=== PATIENT | female | born 1995 | race Hispanic/Latino ===

== ENCOUNTER 2017-10-24 20:22 | Emergency (ER) | payer SELFPAY ==
[2017-10-24 21:31] LABS: Urine Blood 2+ (NEG); Urine Glucose NEGATIVE (NEG); Urine Protein TRACE (NEG)
[2017-10-24 22:11] LABS: Urine Bacteria >50 /HPF (<20); Urine Culture Reflex Order NOT NEEDED
[2017-10-24 22:13] LABS: Bicarbonate 24 mEq/L (21-31); Glucose Level 94 mg/dL (65-120); Potassium 3.6 mEq/L (3.6-5.0); Sodium Level 134 mEq/L (135-145)
[2017-10-24 22:14] LABS: Absolute Lymphocytes (CBC) 1.4 K/uL (0.7-4.9); Absolute Monocytes 0.5 K/uL (0.1-1.3); Absolute Neutrophil 4.2 K/uL (1.8-8.0); Basophils % 0.6 % (0-1.3); Eosinophils % 6.6 % (0-4.4); Hematocrit 40.4 % (36.0-45.0); Lymphocytes % 21.3 % (15.3-44.8); MCH 30.8 pg (27.0-35.0); MPV 9.2 fL (7.6-11.3); Monocytes % 7.4 % (3.3-12.3); RBC Red Blood Cell Count 4.54 M/uL (3.86-4.86)
[2017-10-24] MEDS ORDERED: CEFTRIAXONE/SWI 1gm 1 GM/10 ML SYR ONE (22:33)
[2017-10-24 23:12] LABS: BUN Blood Urea Nitrogen 8 mg/dL (6-20)
--- NOTE | 2017-10-24 23:27 | ER ---
Nurse's Notes [facility] Name: Maria Antonia Montes De Oca Age: 22 yrs Sex: Female : 1995 Arrival Date: 10/24/2017 Time: 20:25 Bed 17 Private MD: Diagnosis: state;Urinary tract infection, site not specified;Asthma Presentation: 10/24 20:45 Presenting complaint: Patient states: Urinary frequency, pain with urination since lp1 Friday; Denies fever, N/V; Pain to RLQ of abdomen; About 12 weeks . Transition of care: patient was not received from another setting of care. Onset of symptoms was October 24, 2017. Initial Sepsis Screen: Does the patient meet any 2 criteria? No. Patient's initial sepsis screen is negative. Does the patient have a suspected source of infection? No. Patient's initial sepsis screen is negative. Care prior to arrival: None. 20:45 Method Of Arrival: Ambulatory lp1 20:45 Acuity: LETICIA 3 lp1 DIRECTOR WORK: 20:47 LMP 07/29/2017, Verified, EDC 05/05/2018, Gestational age from LMP: 12 weeks 4 lp1 days Historical: - Allergies: 20:46 No Known Allergies; lp1 - Home Meds: 20:46 None [Active]; lp1 - PMHx: 20:46 Asthma; lp1 - PSHx: 20:46 ; Hernia repair; lp1 - Immunization history:: Adult Immunizations up to date. - Social history:: Smoking status: Patient/guardian denies using tobacco. Screenin:47 Abuse screen: Denies threats or abuse. Denies injuries from another. Nutritional lp1 screening: No deficits noted. Tuberculosis screening: No symptoms or risk factors identified. Fall Risk None identified. Assessment: 21:34 General: Appears in no apparent distress. uncomfortable, Behavior is calm, cooperative, jd3 appropriate for age. Pain: Complains of pain in right upper quadrant and right lower quadrant Quality of pain is described as sharp. Neuro: Level of Consciousness is awake, alert, obeys commands, Oriented to person, place, time, situation. Cardiovascular: Heart tones S1 S2 present Capillary refill < 3 seconds Patient's skin is warm and dry. Respiratory: Airway is patent Respiratory effort is even, unlabored, Respiratory pattern is regular, symmetrical, Breath sounds with wheezes bilaterally. GI: Abdomen is round Bowel sounds present X 4 quads. Abd is soft X 4 quads Abdomen is tender to palpation in right upper quadrant and right lower quadrant Reports nausea. : Reports burning with urination. EENT: No signs and/or symptoms were reported regarding the EENT system. Derm: Skin is intact, Skin is dry, Skin is normal, Skin temperature is warm. Musculoskeletal: Circulation, motion, and sensation intact. Range of motion: intact in all extremities. 22:11 Reassessment: Patient appears in no apparent distress at this time. Patient and/or jd3 family updated on plan of care and expected duration. Pain level reassessed. Patient is alert, oriented x 3, equal unlabored respirations, skin warm/dry/pink. ultrasound at bedside. 23:26 Reassessment: Patient appears in no apparent distress at this time. Patient and/or jd3 family updated on plan of care and expected duration. Pain level reassessed. Patient is alert, oriented x 3, equal unlabored respirations, skin warm/dry/pink. 23:46 Reassessment: Patient appears in no apparent distress at this time. Patient and/or jd3 family updated on plan of care and expected duration. Pain level reassessed. Patient is alert, oriented x 3, equal unlabored respirations, skin warm/dry/pink. pt reported understanding of discharge instructions, even and steady gait upon discharge. Vital Signs: 20:47 BP 112 / 69; Pulse 88; Resp 18; Temp 98.9(O); Pulse Ox 98% on R/A; Weight 59.87 kg; lp1 Height 5 ft. 2 in. (157.48 cm); Pain 7/10; 22:28 BP 117 / 53; Pulse 77; Resp 16 S; Pulse Ox 100% on R/A; jd3 23:26 BP 113 / 61; Pulse 66; Resp 17 S; Pulse Ox 99% on R/A; jd3 20:47 Body Mass Index 24.14 (59.87 kg, 157.48 cm) lp1 ED Course: 20:25 Patient arrived in ED. am2 20:46 Triage completed. lp1 20:46 Arm band placed on left wrist. lp1 21:30 [facility]C [facility]. snw 21:30 Darci Huerta MD is Attending Physician. snw 21:34 Tim Dolan, RN is Primary Nurse. jd3 21:37 Patient has correct armband on for positive identification. Bed in low position. Call [facility] light in reach. Side rails up X 1. Adult w/ patient. 21:45 Inserted saline lock: 20 gauge in right antecubital area, using aseptic technique. jd3 Blood collected. 21:52 CBC with Diff Sent. jd3 21:52 Basic Metabolic Panel Sent. jd3 21:52 Abo/rh Typing Sent. jd3 21:52 Quantitative Hcg Sent. jd3 22:27 Ultrasound completed. Patient tolerated well. sg3 22:38 US Transvaginal Ob In Process Unspecified. EDMS 23:40 No provider procedures requiring assistance completed. IV discontinued, intact, jd3 bleeding controlled, No redness/swelling at site. Pressure dressing applied. Administered Medications: 22:39 Drug: Rocephin 1 grams Route: IV; Rate: calculated rate; Site: right antecubital; jd3 23:36 Follow up: Response: No adverse reaction; IV Status: Completed infusion jd3 23:36 Drug: Albuterol 2.5 mg Route: Inhalation; jd3 23:47 Follow up: Response: No adverse reaction jd3 Outcome: 23:27 Discharge ordered by . snw 23:40 Condition: stable jd3 23:40 Discharge instructions given to patient, family, Instructed on discharge instructions, follow up and referral plans. medication usage, Demonstrated understanding of instructions, follow-up care, Prescriptions given X 2. 23:46 Discharged to home ambulatory, with family. jd3 23:49 Patient left the ED. jd3 Addendum: 10/27/2017 07:46 Addendum: Culture Results: Positive urine culture. No further action required. Bacteria s s sensitive to prescribed antibiotic. Signatures: Dispatcher [employer] EDWY Rachel Dunn, TYPING ELEMENT MACHINE OPERATOR-C TYPING ELEMENT MACHINE OPERATOR-Csnw Veronika Mendoza RN RN ss Atiya Escobar RN RN lp1 Laura Rubalcava am2 Tim Dolan RN RN jd3 Kristina Galloway sg3
--- NOTE | 2017-10-24 23:27 | EDPHYS ---
Physician Documentation [facility] Name: Maria Antonia Montes De Oca Age: 22 yrs Sex: Female : 1995 Arrival Date: 10/24/2017 Time: 20:25 Bed 17 Private MD: ED Physician Darci Huerta HPI: 10/24 22:39 This 22 yrs old Female presents to ER via Ambulatory with complaints of Pain snw With Urination, Urinary Frequency. 22:39 Onset: The symptoms/episode began/occurred suddenly, 2 day(s) ago, and became snw persistent. Associated signs and symptoms: Pertinent positives: The patient does not have any pertinent positive signs or symptoms associated with pediatric illness. The patient has not experienced similar symptoms in the past. The patient has been recently seen by a physician: with different complaint(s), and apparently was diagnosed with - pt is moving and saw an disability insurance hearing officer in [place]. . 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 - Social history:: Smoking status: Patient/guardian denies using tobacco. ROS: 22:39 Constitutional: Negative for fever, chills, and weight loss, Eyes: Negative for injury, snw pain, redness, and discharge, ENT: Negative for injury, pain, and discharge, Neck: Negative for injury, pain, and swelling, Cardiovascular: Negative for chest pain, palpitations, and edema, Respiratory: Negative for shortness of breath, cough, wheezing, and pleuritic chest pain, Back: Negative for injury and pain, MS/Extremity: Negative for injury and deformity, Skin: Negative for injury, rash, and discoloration, Neuro: Negative for headache, weakness, numbness, tingling, and seizure. 22:39 Abdomen/GI: Positive for abdominal pain. 22:39 : Positive for urinary symptoms, urinary frequency, small amounts, burning with urination. Exam: 22:38 Constitutional: This is a well developed, well nourished patient who is awake, alert, snw and in no acute distress. Head/Face: Normocephalic, atraumatic. Eyes: Pupils equal round and reactive to light, extra-ocular motions intact. Lids and lashes normal. Conjunctiva and sclera are non-icteric and not injected. Cornea within normal limits. Periorbital areas with no swelling, redness, or edema. ENT: Nares patent. No nasal discharge, no septal abnormalities noted. Tympanic membranes are normal and external auditory canals are clear. Oropharynx with no redness, swelling, or masses, exudates, or evidence of obstruction, uvula midline. Mucous membranes moist. Neck: Trachea midline, no thyromegaly or masses palpated, and no cervical lymphadenopathy. Supple, full range of motion without nuchal rigidity, or vertebral point tenderness. No Meningismus. Chest/axilla: Normal chest wall appearance and motion. Nontender with no deformity. No lesions are appreciated. Cardiovascular: Regular rate and rhythm with a normal S1 and S2. No gallops, murmurs, or rubs. Normal PMI, no JVD. No pulse deficits. Respiratory: Lungs have equal breath sounds bilaterally, wheezes to auscultation. No rales, rhonchi noted. No increased work of breathing, no retractions or nasal flaring. + bronchitic cough Back: No spinal tenderness. No costovertebral tenderness. Full range of motion. Skin: Warm, dry with normal turgor. Normal color with no rashes, no lesions, and no evidence of cellulitis. MS/ Extremity: Pulses equal, no cyanosis. Neurovascular intact. Full, normal range of motion. Neuro: Awake and alert, GCS 15, oriented to person, place, time, and situation. Cranial nerves II-XII grossly intact. Motor strength 5/5 in all extremities. Sensory grossly intact. Cerebellar exam normal. Normal gait. 22:38 Abdomen/GI: Inspection: abdomen appears normal, Bowel sounds: normal, Palpation: soft, mild abdominal tenderness, in the right lower quadrant. Vital Signs: 20:47 BP 112 / 69; Pulse 88; Resp 18; Temp 98.9(O); Pulse Ox 98% on R/A; Weight 59.87 kg; lp1 Height 5 ft. 2 in. (157.48 cm); Pain 7/10; 22:28 BP 117 / 53; Pulse 77; Resp 16 S; Pulse Ox 100% on R/A; jd3 23:26 BP 113 / 61; Pulse 66; Resp 17 S; Pulse Ox 99% on R/A; jd3 20:47 Body Mass Index 24.14 (59.87 kg, 157.48 cm) lp1 MDM: 21:37 Patient medically screened. snw 23:35 Data reviewed: vital signs, nurses notes. Data interpreted: Pulse oximetry: on room air snw is 99 %. Interpretation: normal. Counseling: I had a detailed discussion with the patient and/or guardian regarding: the historical points, exam findings, and any diagnostic results supporting the discharge/admit diagnosis, lab results, radiology results, the need for outpatient follow up, to return to the emergency department if symptoms worsen or persist or if there are any questions or concerns that arise at home. Special discussion: Based on the history and exam findings, there is no indication for further emergent testing or inpatient evaluation. I discussed with the patient/guardian the need to see the OB Gyne specialist for further evaluation of the symptoms. I discussed with the patient/guardian the need to see the primary care provider for further evaluation of the symptoms. 10/24 20:34 Order name: Urine Culture [facility] 10/24 20:34 Order name: Urine Microscopic Only; Complete Time: 22:25 [facility] 10/24 21:24 Order name: Urine Dipstick--Ancillary (enter results); Complete Time: 21:36 [facility] 10/24 21:24 Order name: Urine --Ancillary (enter results); Complete Time: 21:36 [facility] 10/24 21:37 Order name: Quantitative Hcg; Complete Time: 23:22 [facility] 10/24 21:37 Order name: Abo/rh Typing; Complete Time: 22:30 [facility] 10/24 20:34 Order name: Urine Test (obtain specimen); Complete Time: 21:14 [facility] 10/24 20:34 Order name: Urine Dipstick-Ancillary (obtain specimen); Complete Time: 21:14 [facility] 10/24 21:37 Order name: US Transvaginal Ob [facility] 10/24 21:37 Order name: Basic Metabolic Panel; Complete Time: 23:22 [facility] 10/24 21:37 Order name: CBC with Diff; Complete Time: 22:25 snw 10/24 21:37 Order name: IV Saline Lock; Complete Time: 21:52 snw 10/24 21:37 Order name: Labs collected and sent; Complete Time: 21:52 snw 10/24 21:37 Order name: NPO; Complete Time: 21:38 snw Administered Medications: 22:39 Drug: Rocephin 1 grams Route: IV; Rate: calculated rate; Site: right antecubital; jd3 23:36 Follow up: Response: No adverse reaction; IV Status: Completed infusion jd3 23:36 Drug: Albuterol 2.5 mg Route: Inhalation; jd3 23:47 Follow up: Response: No adverse reaction j Disposition: 10/24/17 23:27 Discharged to Home. Impression: state, Urinary tract infection, site not specified, Asthma. - Condition is Stable. - Discharge Instructions: and Urinary Tract Infection. - Prescriptions for Augmentin 875- 125 mg Oral Tablet - take 1 tablet by ORAL route every 12 hours for 10 days; 20 tablet. Vitamin 27- 0.8 mg Oral Tablet - take 1 tablet by ORAL route once daily; 60 tablet. - Medication Reconciliation Form, Thank You Letter, Antibiotic Education, Prescription Opioid Use form. - Follow up: Private Physician; When: 1 week; Reason: Recheck today's complaints, Continuance of care, Re-evaluation by your physician. Follow up: Emergency Department; When: As needed; Reason: Worsening of condition. - Problem is new. - Symptoms are unchanged. Addendum: 10/29/2017 06:39 Co-signature as Attending Physician, Darci Huerta MD Available for consultation at p s1 all times. . Signatures: Dispatcher [employer] EDRI Rachel Dunn, HAZARDOUS WASTE REMOVER-C HAZARDOUS WASTE REMOVER-Csnw Atiya Escobar RN RN lp1 Tim Dolan RN RN jd3 Singer, Phillip, MD MD ps1 Corrections: (The following items were deleted from the chart) 10/24 23:36 22:38 Constitutional: This is a well developed, well nourished patient who is awake, snw alert, and in no acute distress. Head/Face: Normocephalic, atraumatic. Eyes: Pupils equal round and reactive to light, extra-ocular motions intact. Lids and lashes normal. Conjunctiva and sclera are non-icteric and not injected. Cornea within normal limits. Periorbital areas with no swelling, redness, or edema. ENT: Nares patent. No nasal discharge, no septal abnormalities noted. Tympanic membranes are normal and external auditory canals are clear. Oropharynx with no redness, swelling, or masses, exudates, or evidence of obstruction, uvula midline. Mucous membranes moist. Neck: Trachea midline, no thyromegaly or masses palpated, and no cervical lymphadenopathy. Supple, full range of motion without nuchal rigidity, or vertebral point tenderness. No Meningismus. Chest/axilla: Normal chest wall appearance and motion. Nontender with no deformity. No lesions are appreciated. Cardiovascular: Regular rate and rhythm with a normal S1 and S2. No gallops, murmurs, or rubs. Normal PMI, no JVD. No pulse deficits. Respiratory: Lungs have equal breath sounds bilaterally, clear to auscultation and percussion. No rales, rhonchi or wheezes noted. No increased work of breathing, no retractions or nasal flaring. Back: No spinal tenderness. No costovertebral tenderness. Full range of motion. Skin: Warm, dry with normal turgor. Normal color with no rashes, no lesions, and no evidence of cellulitis. MS/ Extremity: Pulses equal, no cyanosis. Neurovascular intact. Full, normal range of motion. Neuro: Awake and alert, GCS 15, oriented to person, place, time, and situation. Cranial nerves II-XII grossly intact. Motor strength 5/5 in all extremities. Sensory grossly intact. Cerebellar exam normal. Normal gait. snw
[2017-10-24] MEDS ORDERED: ALBUTEROL 2.5 MG/3 ML NEB SOL ONE (23:33)
--- NOTE | 2017-10-25 10:51 | RAD REPORT ---
EXAM DESCRIPTION: US - Transvaginal OB - 10/24/2017 10:38 pm CLINICAL HISTORY: Pelvic pain COMPARISON: None. FINDINGS: A single gestational sac is seen within the uterus. Within the sac is a single pole with crown-rump length measuring 5.3 cm corresponding to 12 weeks 0 day gestational age. Cardiac activity is normal measuring 159 BPM No unexpected findings. The left ovary was not well seen. IMPRESSION: Single live early intrauterine gestation as detailed above.
== END 2017-10-24 23:49 | disposition home or self-care (01) ==
LOC: ER 20:22
DX: O23.11 Infections of bladder in pregnancy, first trimester (principal)
CPT/HCPCS: 36415; 76817; 80048; 81003; 81015; 81025; 84702; 85025; 86900; 86901; 87077; 87086; 87088; 87186; 96365; 99284; J0696